=== PATIENT | female | born 1960 | race Caucasian/White ===

== ENCOUNTER 2019-12-23 13:06 | Outpatient (CLI) | payer OTHER | END 2019-12-23 13:16 | disposition home or self-care (01) | LOC: RAD 13:06 | DX: M25.552 Pain in left hip (principal) ==

== ENCOUNTER 2024-04-30 05:55 | Day surgery (SDC) | payer OTHER ==
[2024-04-10 09:43] LABS: HEMATOCRIT 39.9 % (36.0-45.00); HEMOGLOBIN 13.5 g/dL (12.0-15.00); MEAN CELL VOLUME 81.4 fL (80.00-100.00); MEAN CORPUSCULAR HEMOGLOBIN 27.6 pg (27.00-32.0); MEAN CORPUSCULAR HGB CONC 33.8 g/dl (32.0-36.0); PLATELET COUNT 235 K/uL (150-450); RED CELL DISTRIBUTION WIDTH 14.4 % (11.5-14.5)
[2024-04-10 09:45] LABS: PH,URINE 7.5 (5.0-8.0); URINE APPEARANCE Clear; URINE BILIRRUBIN Negative (NEGATIVE); URINE BLOOD Negative; URINE COLOR Yellow; URINE GLUCOSE Negative (NEGATIVE); URINE KETONE Negative (NEGATIVE); URINE LEUKOCYTE Moderate; URINE NITRATE Negative; URINE PROTEIN Negative (NEGATIVE); URINE UROBILINOGEN 0.2 E.U./dl
[2024-04-10 09:57] LABS: URINE BACTERIA 1449.1 uL (0.0-1933); URINE EPITHELIAL CELLS 35.1 uL (0.0-38.8); URINE RBC 7.3 uL (0.0-20.8); URINE WBC 9.4 uL (0.0-23.2)
[2024-04-10 10:01] LABS: INR 0.98; PARTIAL THROMBOPLASTIN TIME 29.1 SECONDS (22.0-34.0); PROTHROMBIN TIME 10.7 SECONDS (9.0-11.5)
[2024-04-10 10:03] VITALS: BP 121/77
[2024-04-10 10:34] LABS: ALBUMIN 3.9 gm/dL (3.4-5.0); BILIRUBIN TOTAL 0.46 mg/dL (0.3-1.2); CREATININE SERUM 0.74 mg/dL (0.55-1.02); GFR 79.78; GLOBULINA 3.5 G/DL (2.4-3.5); POTASSIUM 4.09 mEq/L (3.5-5.1); TOTAL PROTEIN 7.4 gm/dL (6.4-8.2)
[~2024-04-30] VITALS: Ht 157.5 cm; Wt 66.2 kg
[~2024-04-30 05:55] MED LIST: CRESTOR40 MG PO; XOPENEX HFA15 GM IH
[2024-04-30] MEDS ORDERED: CEFAZOLIN SODIUM 1,000 MG VIAL ONE (09:28)
[2024-04-30] MEDS ORDERED: BUPIVACAINE HCL 30 ML VIAL IJ ONE (10:30)
[2024-04-30] MEDS ORDERED: MORPHINE SULFATE 4 MG/ML VIAL IV ONE (11:20)
== END 2024-04-30 12:45 | disposition home or self-care (01) ==
LOC: CIR.AMB 05:55
PROVIDERS: ATTEND Orthopaedic Surgery Hand Surgery
DX: G56.01 Carpal tunnel syndrome, right upper limb (principal); J45.909 Unspecified asthma, uncomplicated; E78.00 Pure hypercholesterolemia, unspecified